=== PATIENT | male | born 1940 | race Caucasian/White ===

== ENCOUNTER 2016-09-26 12:31 | Emergency (ER) | payer MEDICARE, BC ==
[2016-09-26 12:33] VITALS: BP 145/79; PULSE 70; RESP 18; TEMP 98; O2SAT 98
[2016-09-26 12:40] VITALS: BP 138/69; PULSE 67; RESP 16; O2SAT 94
[2016-09-26] MEDS ORDERED: SIMV40TA PO (12:44)
[2016-09-26] MEDS ORDERED: HYDR25TA5 PO (12:44)
--- NOTE | 2016-09-26 12:55 | PD ---
HPI Chief Complaint: Fall Time Seen by Provider: 12:54 Travel History International Travel<30 days: No Contact w/Intl Traveler<30days: No Traveled to known affect area: No History of Present Illness HPI 76-year-old male presents to the emergency department with complaint of low back pain after falling from the back of his camper yesterday morning. He fell about 3 feet and landed on his left side. He denies hitting his head or loss of consciousness. Denies anticoagulants. Denies neck pain. Has been ambulatory since after the fall. Denies focal deficits or weakness. Denies lightheadedness, dizziness, headache, change in mentation, confusion, disorientation. Denies extremity pain. Denies chest pain, shortness of breath , abdominal pain, nausea, vomiting. Denies change in urine or stool. Denies encopresis, incontinence, saddle anesthesias. Denies paresthesias, loss of sensation, decreased range of motion, decreased strength to all extremities. Has been taking half of a 7.5 mg Percocet and half of a 10 mg Flexeril with good relief of pain, which are his friend's medications. Last took both medications at 9 AM this morning. Primary care provider is Dr. Trent in [place]. No known allergies. History of hypertension and takes lisinopril and hydrochlorothiazide. No other modifying factors or associated signs and symptoms. PFSH Past Medical History High Cholesterol: Yes Diminished Hearing: No Musculoskeletal: Yes Tetanus Vaccination: Unknown Influenza Vaccination: Yes Social History Alcohol Use: Yes (OCC) Tobacco Use: No Substance Use: No Allergies-Medications (Allergen,Severity, Reaction): Coded Allergies: No Known Allergies (Unverified , 09/26/16) Reported Meds & Prescriptions Reported Meds & Active Scripts Active Robaxin (Methocarbamol) 500 Mg Tab 500 Mg PO QID PRN Reported Simvastatin 40 Mg Tab 40 Mg PO HS Hydrochlorothiazide 25 Mg Tab 25 Mg PO DAILY Review of Systems Except as stated in HPI: all other systems reviewed are Neg Physical Exam Narrative GENERAL: Well-nourished, well-developed elderly, male patient, in no acute distress SKIN: Warm and dry. HEAD: Atraumatic. Normocephalic. No facial or scalp abrasions or lacerations noted. No facial droop noted. Tongue midline. EYES: Pupils equal and round at 2 mm with brisk reaction. No scleral icterus. No injection or drainage. No raccoon eyes. No orbital tenderness on palpation bilaterally. ENT: Mucosa pink and moist. No erythema or exudates. No uvular edema. No uvular , palatal, or tonsillar deviation. Airway patent. No rhinorrhea. EARS: Bilateral pinnae and external canals appear within normal limits. Bilateral tympanic membranes without erythema, dullness, hemotympanum or perforation. No otorrhea. No palomino signs. NECK: Moving freely. Trachea midline. Active rotation of the neck greater than 45 left and right. No midline point tenderness on palpation of the cervical spine. No obvious deformities. CHEST: Nontender throughout without deformity or crepitance. No retractions or use of accessory muscles. CARDIOVASCULAR: Regular rate and rhythm. No murmur appreciated. RESPIRATORY: No accessory muscle use. Clear to auscultation. Breath sounds equal bilaterally. GASTROINTESTINAL: Abdomen soft, non-tender, nondistended. Hepatic and splenic margins not palpable. Bowel sounds are active 4 quadrants. MUSCULOSKELETAL: No obvious deformities. No clubbing. No cyanosis. No edema. BACK: No midline point tenderness on palpation of the lumbar or thoracic spine. No reproducible tenderness to the lower back on palpation. No obvious deformities. Patient sitting up in bed at 90. NEUROLOGICAL: Awake and alert. Oriented 4. No obvious cranial nerve deficits. Motor grossly within normal limits. Normal speech. No midline drift. Moves all extremities. 5/5 strength to all extremities. Sensory intact. PSYCHIATRIC: Appropriate mood and affect; insight and judgment normal. Data Data Last Documented VS Vital Signs Date Time Temp Pulse Resp B/P Pulse Ox O2 Delivery O2 Flow Rate FiO2 09/26/16 12:45 68 16 93 Room Air 09/26/16 12:40 138/69 09/26/16 12:33 98.0 Orders Spine, Lumbar - Ltd (Ap & Lat) (09/26/16 12:55) [facility] Medical Decision Making Medical Screen Exam Complete: Yes Emergency Medical Condition: Yes Medical Record Reviewed: Yes Differential Diagnosis Fall, low back strain, acute low back pain, lumbar fracture Narrative Course 76-year-old male with low back pain after falling approximately 3 feet from the back of the [facility] yesterday morning. Arrived by private vehicle for evaluation. He denies hitting his head or loss of consciousness. Denies nausea, vomiting. On physical exam the patient is without raccoon eyes, palomino signs, rhinorrhea, or hemotympanum. I do not suspect open or depressed skull fracture, and the patient has no signs of basilar skull fracture. [place] CT Head Injury Rule suggests a head CT is not necessary for this patient and clears the patient for head injury without imaging. Denies neck pain. [place] C-Spine Rule suggests the C-Spine can be cleared clinically of fracture , and imaging is not required. There is no midline point tenderness on palpation of the cervical spine. The patient is able to actively rotate the neck 45 left and right. The patient is sitting up in bed at 90. The patient is ambulatory. He has no midline point tenderness on palpation of the lumbar spine. I discussed the patient with Dr. Azevedo and he agrees with my treatment plan. The patient medication for pain and he declined at this time. X-ray lumbar spine ordered. 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 Degenerative joint changes involving the lower facets. Patient ambulated in the hallway. Patient will be discharged home. Instructed patient to use [id number] medications for pain. Robaxin prescribed for home. Patient verbalizes understanding and agreement with treatment plan. Patient is medically cleared and stable for discharge. Discussed reasons to return to the emergency department. Instructed patient to follow up with primary care provider. Patient agrees with treatment plan. The patients vital signs are stable and the patient is stable for outpatient follow- up and treatment. Patient discharged home, stable and in no acute distress. Diagnosis Primary Impression: Low back strain Qualified Code: S39.012A - Low back strain, initial encounter Additional Impression: Acute low back pain Qualified Code: M54.5 - Acute bilateral low back pain without sciatica Referrals: Primary Care Physician Patient Instructions: Acute Low Back Pain (ED), Fall Prevention (ED), General Instructions Additional Instructions: Tylenol as directed and as needed for pain Robaxin as prescribed and as needed for muscle spasms Heating pad and/or ice to affected area to reduce pain Avoid aggravating activities; increase activity as tolerated Follow-up with primary care provider Return to emergency department immediately with worsening of symptoms Med/Other Pt SpecificInfo: Prescription(s) given Scripts Methocarbamol (Robaxin)500 Mg Dub909 Mg PO QID PRN (MUSCLE SPASM) #20 TAB Ref 0 Prov:Maryanne Pollock 09/26/16 Disposition: 01 DISCHARGE HOME Condition: Stable Maryanne Pollock Sep 26, 2016 12:55
--- NOTE | 2016-09-26 13:40 | RADRPT ---
EXAM DATE/TIME: 09/26/2016 13:24 [facility] COMPARISON: No previous studies available for comparison. INDICATIONS : Pain from three foot fall. MEDICAL HISTORY : None. SURGICAL HISTORY : Cholecystectomy. ENCOUNTER: Initial ACUITY: 2 days PAIN SCORE: 7/10 LOCATION: Lumbar spine. FINDINGS: AP and lateral views lumbar spine were obtained and demonstrate 5 nonrib-bearing lumbar type vertebra . Diffuse osteopenia. There is invagination of the superior endplate of L4 and L1 which appear chroni c. There is normal alignment. The disc spaces are fairly well-preserved. There are degenerative wagoner es involving the lower facets. The sacrum is intact. Vascular calcifications are present. CONCLUSION: 1. 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 2. Degenerative joint changes involving the lower facets. Surendra Joy MD on September 26, 2016 at 13:30 Board Certified Radiologist. This report was verified electronically.
[2016-09-26] MEDS ORDERED: ROBA500T PO (13:48)
== END 2016-09-26 14:38 | disposition home or self-care (01) ==
LOC: NEPA 12:31
DX: S39.012A Strain of muscle, fascia and tendon of lower back, initial encounter (principal); E78.00 Pure hypercholesterolemia, unspecified; I10 Essential (primary) hypertension; W17.89XA Other fall from one level to another, initial encounter; Y93.9 Activity, unspecified; Y92.89 Other specified places as the place of occurrence of the external cause; Y99.9 Unspecified external cause status
CPT/HCPCS: 72100; 99283